=== PATIENT | male | born 2000 | race Caucasian/White ===

== ENCOUNTER 2024-01-08 19:25 | Emergency (ER) | payer SELFPAY ==
[2024-01-08] MEDS: EPINEPHrine 1 MG/1 ML Amp ONE (19:32)
[2024-01-08] MEDS: EPINEPHrine 1 MG/1 ML Amp IM STA (19:33)
[2024-01-08] MEDS: methylPREDNISolone Sodium Succinate 125 MG/2 ML SDV IVPUSH ONE (19:42)
[2024-01-08] MEDS: diphenhydrAMINE 50 MG/ML SDV IVPUSH ONE (19:42)
[2024-01-08] MEDS: Famotidine 20 MG/2 ML SDV IVPUSH ONE (19:42)
== END 2024-01-08 23:10 | disposition home or self-care (01) ==
LOC: MW.ED 19:25
DX: T78.40XA Allergy, unspecified, initial encounter (principal); Z91.048 Other nonmedicinal substance allergy status
CPT/HCPCS: 96372; 96374; 96375; 99284; J0171; J1200; J2919; J3490